=== PATIENT | male | born 1975 | race Caucasian/White ===

== ENCOUNTER 2020-10-31 16:26 | Emergency (ER) | payer SELFPAY ==
[~2020-10-31] VITALS: Ht 185.4 cm; Wt 112.2 kg
[~2020-10-31 16:26] MED LIST: CYCL10TA9 PO; TRAM50TA2 PO
--- NOTE | 2020-10-31 17:09 | ED Lower Extremity ---
General Chief Complaint: Lower Extremity Stated Complaint: RT FOOT INJ Source: patient History of Present Illness Date Seen by Provider: Oct 31, 2020 Time Seen by Provider: 16:29 Initial Comments 45-year-old male presenting with pain to his right foot after cast iron tub fell on his foot. He was helping to move the tub on a ramp when the ramp gave way and collapsed. It caused the cast iron tub to fall onto his right foot. He has pain to top of right foot but has been able to hobble and bear some weight. 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 He denies numbness or tingling. He has no prior injury to his right foot. Onset: just prior to arrival Severity: severe Pain/Injury Location: right foot Method of Injury: direct blow Modifying Factors: Worse With Movement Allergies and Home Medications Allergies Coded Allergies: No Known Drug Allergies (Unverified , 10/21/14) Home Medications Ibuprofen 800 Mg Tablet, 800 MG PO Q8H PRN for PAIN Prescribed by: MICHAEL LIND on 10/31/201726 Tramadol HCl 50 Mg Tablet, 50 MG PO Q4H PRN for PAIN-SEVERE (8-10) Prescribed by: MICHAEL LIND on 10/31/20 1727 Patient Home Medication List Home Medication List Reviewed: Yes Review of Systems Constitutional: No chills, No fever EENTM: no symptoms reported Respiratory: no symptoms reported Cardiovascular: no symptoms reported Gastrointestinal: no symptoms reported Genitourinary: no symptoms reported Musculoskeletal: see HPI Skin: change in color (starting to get bruising to right foot) Psychiatric/Neurological: Anxiety; Denies Numbness, Denies Paresthesia, Denies Tingling, Denies Tremors Past Tzswvlb-Ierzbc-Ssfrcl Hx Patient Social History Tobacco Use?: Yes Tobacco type used: Cigarettes Smoking Status: Current Everyday Smoker Use of E-Cig and/or Vaping dev: No Substance use?: No Alcohol Use?: Yes Alcohol type: Hard Liquor Alcohol Frequency: Daily Pt feels they are or have been: No Seasonal Allergies Seasonal Allergies: No Past Medical History Appendectomy, Gallbladder Reproductive Disorders: No Family Medical History No Pertinent Family Hx Physical Exam Vital Signs Vital Signs - First Documented 10/31/20 16:47 Temp 36.1 Pulse 107 Resp 16 B/P (MAP) 155/104 (121) Pulse Ox 100 O2 Delivery Room Air Capillary Refill : Height, Weight, BMI Height: 6'1" Weight: 225lbs. oz. 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, no motor/sensory deficits, alert, oriented x 3 Skin: warm/dry Progress/Results/Core Measures Results/Orders My Orders Orders - MICHAEL LIND MD Foot 3 View Right (10/31/20 16:40) Ice: Apply To Affected Area (10/31/20 16:40) Elevate Affected Extremity (10/31/20 16:40) Post-Op Shoe (10/31/20 17:21) Vital Signs/I&O 10/31/20 10/31/20 16:47 17:40 Temp 36.1 36.1 Pulse 107 98 Resp 16 16 B/P (MAP) 155/104 (121) 155/97 (121) Pulse Ox 100 100 O2 Delivery Room Air Progress Progress Note #1: Progress Note As patient had taken whiskey before coming to the ED will obtain x-rays to evalu ate for fracture dislocation. Ordered ice and elevation to help with pain Progress Note #2: Progress Note No acute fracture or dislocation seen on x-rays of the right foot. Counseled on follow-up and return precautions. Treat with postop shoe and weightbearing as tolerated. Ice, rest, elevation, NSAIDs and a few pain pills for severe pain. Diagnostic Imaging Diagonstic Imaging: Xray Plain Films/CT/US/NM/MRI: other (foot) Comments NAME: JAYLAN POTTER [facility] REC#: [id number] PT STATUS: REG ER : 1975 PHYSICIAN: MICHAEL LIND MD ADMIT DATE: 10/31/20/ER FS Draft Date of Exam:10/31/20 FOOT 3 VIEW RIGHT INDICATION: Pain in the lateral right foot. TIME OF EXAM: 4:46 p.m. Three views of the right foot were obtained. Metatarsals and phalanges are intact. Midfoot and hindfoot are unremarkable. No fractures are seen. IMPRESSION: No acute bony abnormality is detected. Dictated on workstation # [id number] Dict: 10/31/201704 Trans: 10/31/201707 [facility] [id number] Interpreted by: PERICO SWEENEY MD Electronically signed by: Reviewed: Reviewed by Me Departure Impression Primary Impression: Contusion of right foot, initial encounter Additional Impression: Crushing injury of right foot, initial encounter Disposition: HOME, SELF-CARE Condition: Stable Departure-Patient Inst. Decision time for Depature: 17:25 Referrals: NO,LOCAL PHYSICIAN (PCP) Primary Care Physician [facility] [place] Patient Instructions: Crush Injury (DC), Minor Contusion ED Add. Discharge Instructions: Wear the Post Op Shoe for the next 7 to 10 days to let your foot rest and heal from contusion and crush injury. If not improving within 7 to 10 days then you may need repeat xrays or more advanced imaging with Orthopedics or Primary care to look for hairline stress fracture. Weight bearing as you tolerate it, so you may need a pair of crutches to help you get around. Try to limit use of the right foot for next few days and elevate it above your heart level to help with swelling and pain. Ice 20-30 minutes every few hours as needed for pain and swelling You could call the [facility] clinic at [phone] to get established with a primary care doctor or call [phone] to reach Orthopedics with Dr. Marie and his nurse practitioner Herberth Bhagat. All discharge instructions reviewed with patient and/or family. Voiced understanding. Scripts Ibuprofen (Ibuprofen) 800 Mg Tablet 800 MG PO Q8H PRN for PAIN for 10 Days, #30 TAB 0 Refills Prov: MICHAEL LIND MD 10/31/20 Tramadol HCl (Tramadol HCl) 50 Mg Tablet 50 MG PO Q4H PRN for PAIN-SEVERE (8-10) for 5 Days, #30 TAB 0 Refills Prov: MICHAEL LIND MD 10/31/20 MICHAEL LIND MD Oct 31, 2020 17:08
[2020-10-31] MEDS ORDERED: IBUP-1780 PO (17:27)
[2020-10-31] MEDS ORDERED: TRM50T PO (17:27)
[2020-10-31 17:40] VITALS: BP 155/97
== END 2020-10-31 17:43 | disposition home or self-care (01) ==
LOC: EDUNIT# 16:26 → ER FS 16:28
DX: S90.31XA Contusion of right foot, initial encounter (principal); S97.81XA Crushing injury of right foot, initial encounter; F17.210 Nicotine dependence, cigarettes, uncomplicated; W20.8XXA Other cause of strike by thrown, projected or falling object, initial encounter
CPT/HCPCS: 73630

== ENCOUNTER 2021-12-05 22:48 | Emergency (ER) | payer SELFPAY ==
[~2021-12-05] VITALS: Ht 185 cm; Wt 113.4 kg
[~2021-12-05 22:48] MED LIST changes: +IBUP-1780 PO; +TRM50T PO
[2021-12-05 22:52] VITALS: BP 143/92
[2021-12-05] MEDS ORDERED: LISI20TA26 (22:59)
[2021-12-05] MEDS ORDERED: NAPR-915 (22:59)
--- NOTE | 2021-12-05 23:12 | ED EENT ---
History of Present Illness General Chief Complaint: Facial Problems Stated Complaint: FACIAL PAIN Nursing Triage Note: C/O LEFT SIDED FACIAL PAIN X2 HRS. DENIES INJURY. Source: patient Exam Limitations: no limitations History of Present Illness Date Seen by Provider: Dec 05, 2021 Time Seen by Provider: 23:01 Initial Comments 46-year-old male presents for left-sided facial pain. Symptoms started just a couple hours prior to arrival. He is having similar symptoms in the past but does state that he has a chipped tooth with cavities in the left upper jawline and fears this may be causative. He denies fevers or chills. No difficulty swallowing or trismus. He tried some Tylenol at home without much relief. Allergies and Home Medications Allergies Coded Allergies: No Known Drug Allergies (Unverified , 10/21/14) Patient Home Medication List Home Medication List Reviewed: Yes Lisinopril (Lisinopril) 20 Mg Tablet, (Reported) Entered as Reported by: BRIDGETTE BALDERRAMA on 12/05/212258 Last Action: New Order Naproxen (Naproxen) 500 Mg Tablet, (Reported) Entered as Reported by: BRIDGETTE BALEDRRAMA on 12/05/212258 Last Action: New Order Discontinued Medications Ibuprofen (Ibuprofen) 800 Mg Tablet, 800 MG PO Q8H PRN for PAIN Discontinued Reason: No Longer Taking Prescribed by: MICHAEL LIND on 10/31/201726 Last Action: Discontinued Tramadol HCl (Tramadol HCl) 50 Mg Tablet, 50 MG PO Q4H PRN for PAIN-SEVERE (8- 10) Discontinued Reason: No Longer Taking Prescribed by: MICHAEL LIND on 10/31/201726 Last Action: Discontinued Review of Systems Review of Systems Constitutional: no symptoms reported Eyes: No Symptoms Reported Ears: No Symptoms Reported Nose: no symptoms reported Mouth: other Throat: no symptoms reported Respiratory: no symptoms reported Past Aioshzb-Pbradj-Ugsbeo Hx Patient Social History Tobacco Use?: Yes Substance use?: No Alcohol Use?: No Pt feels they are or have been: No Immunizations Up To Date First/Initial COVID19 Vaccinat: NA Seasonal Allergies Seasonal Allergies: No Past Medical History Surgery/Hospitalization HX: APPY, ULISES, ANXIETY, HTN, CVA Appendectomy, Gallbladder Reproductive Disorders: No Family Medical History No Pertinent Family Hx Physical Exam Vital Signs Vital Signs - First Documented 12/05/21 22:52 Temp 36.9 Pulse 94 Resp 18 B/P (MAP) 143/92 (109) Pulse Ox 99 O2 Delivery Room Air Height, Weight, BMI Height: 6'1" Weight: 225lbs. oz. 102.890928gq; 33.00 BMI Method: General Appearance: WD/WN, no apparent distress Mouth/Throat: normal mouth inspection, pharynx normal, dental tenderness (Ten derness palpation left upper premolar. There is a dental carry in this area. No palpable abscess.), excessive drooling Neck: non-tender, full range of motion, supple, normal inspection Cardiovascular: regular rate, rhythm, no edema, no gallop, no JVD, no murmur Respiratory: chest non-tender, lungs clear, normal breath sounds, no respiratory distress, no accessory muscle use Gastrointestinal: normal bowel sounds, non tender, soft, no organomegaly, no pulsatile mass Skin: normal color, warm/dry Progress/Results/Core Measures Results/Orders My Orders Orders - RAY MILES DO Ketorolac Injection (Toradol Injection) (12/05/21 23:15) Vital Signs/I&O 12/05/21 22:52 Temp 36.9 Pulse 94 Resp 18 B/P (MAP) 143/92 (109) Pulse Ox 99 O2 Delivery Room Air Blood Pressure Mean: 109 Departure Communication (Admissions) Patient is hemodynamically stable. He has clear dental pain on exam. No facial swelling but does have some left upper jaw pain. No trismus. Given antibiotics and discharged with dental follow-up. He is comfortable with your current plan of care questions were sought and answered. Impression Primary Impression: Pain due to dental caries Disposition: 01 HOME, SELF-CARE Condition: Stable Departure-Patient Inst. Referrals: NO,LOCAL PHYSICIAN (PCP) Primary Care Physician [facility] Patient Instructions: Tooth Decay ED Add. Discharge Instructions: Please call to schedule a dental appointment. Use motrin and tylenol as needed for pain. It is ok to use motrin short term for this kind of pain. Take the antibiotics as prescribed until gone. All discharge instructions reviewed with patient and/or family. Voiced understanding. Scripts Penicillin V Potassium (Penicillin V Potassium) 500 Mg Tablet 500 MG PO BID for 7 Days, #14 TAB Prov: RAY MILES DO 12/05/21 RAY MILES DO Dec 05, 2021 23:12
[2021-12-05] MEDS ORDERED: PENI500T PO (23:14)
[2021-12-05] MEDS ORDERED: KETOROLAC 60 MG/2 ML VIAL IM ONE (23:15)
== END 2021-12-05 23:28 | disposition home or self-care (01) ==
LOC: EDUNIT# 22:48 → ER 22:50
DX: K02.9 Dental caries, unspecified (principal); Z72.0 Tobacco use; Z28.310 Unvaccinated for COVID-19
CPT/HCPCS: 99284

== ENCOUNTER → 2021-12-24 | Outpatient (CLI) | payer OTHER ==
[~2021-12-24] MED LIST changes: +LISI20TA26; +NAPR-915; +PENI500T PO
--- NOTE | 2021-12-24 13:39 | Diagnostic Imaging Report ---
PROCEDURE: US carotid duplex, bilateral. INDICATION: 46-year-old male, hypertension, hyperlipidemia, transient ischemic attack, history tobacco use. TECHNIQUE: Multiple real-time grayscale images were obtained over the carotid arteries in various projections bilaterally. Additional spectral analysis and color Doppler and Duplex images were also obtained. FINDINGS: Color images demonstrate mild scattered plaque formation. This is most pronounced at the level of the carotid bifurcations. Right Carotid System: Right Common Carotid Artery: Patent. There is no abnormally elevated velocity to suggest a hemodynamically significant stenosis. Right Internal Carotid Artery: Patent. There is no abnormally elevated velocity to suggest a hemodynamically significant stenosis. Right External Carotid Artery: Patent. Left Carotid System: Left Common Carotid Artery: Patent. There is no abnormally elevated velocity to suggest a hemodynamically significant stenosis. Left Internal Carotid Artery: Patent. There is no abnormally elevated velocity to suggest a hemodynamically significant stenosis. Left External Carotid Artery: Patent. Vertebral arteries: Patent and with antegrade direction of flow. DOPPLER (peak systolic velocity M/S Right Left CCA .88 1.06 ICA Proximal .60 .65 ICA Mid .73 .77 ICA Distal .78 .85 RATIO .88 .80 ECA .84 .92 VERT .38 .40 IMPRESSION: 1. Mild atherosclerotic plaque bilateral carotid arteries. Carotid Doppler imaging demonstrates no findings to suggest a hemodynamically significant stenosis of the internal carotid arteries at this time. Parameters based on the consensus panel Siddiqui-Scale and Doppler ultrasound criteria published January 2003, Radiology, Volume 229. Dictated by: Dictated on workstation # [id number]
== END ==
LOC: CARD 09:30
PROVIDERS: ATTEND Physician Assistant
DX: I65.23 Occlusion and stenosis of bilateral carotid arteries (principal); I10 Essential (primary) hypertension; E78.5 Hyperlipidemia, unspecified; G45.9 Transient cerebral ischemic attack, unspecified; Z72.0 Tobacco use
CPT/HCPCS: 93880; C8929; 93306

== ENCOUNTER → 2022-01-07 | Outpatient (CLI) | payer OTHER ==
[~2022-01-07] MED LIST changes: +CATHETER FLUSH 10 ML SYR IVP PRN
[2022-01-07 09:49] VITALS: BP 124/87
--- NOTE | 2022-01-07 12:22 | Cardiology Stress Test Report ---
Stress Test Report Date of Procedure/Referring: Date of Procedure: Jan 07, 2022 PCP No,Local Physician Admitting Physician Admitting Physician: Attending Physician: Madeline Herrera Baseline Heart Rate: 80 Baseline Blood Pressure: Blood Pressure Systolic: 124 Blood Pressure Diastolic: 87 Vital Signs Date Time Temp Pulse Resp B/P (MAP) Pulse Ox O2 Delivery O2 Flow Rate FiO2 01/07/22 09:49 71 124/87 (99) 98 Room Air Baseline Vital Signs Vital Signs Date Time Temp Pulse Resp B/P (MAP) Pulse Ox O2 Delivery O2 Flow Rate FiO2 01/07/22 09:49 71 124/87 (99) 98 Room Air Baseline EKG: Baseline EKG: NSR Summary: After explaining the procedure and details to the patient, he signed the consent and was brought to the stress nuclear laboratory. Patient exercised on standard Dionisio protocol, EKG, heart rate and blood pressure were monitored continuously, resting and stress doses of radio tracer were injected, imaging was acquired and reviewed in the short axis, horizontal long axis and vertical long axis views Patient was able to exercise for a total of 11 minutes on Dionisio protocol, METs 12.1 Maximum heart rate 157 Maximum blood pressure 179/86 Stress EKG, Minimal nondiagnostic changes Recovery EKG, Return to baseline TID: 0.89 SSS: 4 SDS: 4 EF: 56 Conclusion: 1. Excellent exercise tolerance for 11 minutes on Dionisio protocol, 12.1 METS achieving 89% of maximum expected heart rate 2. Appropriate heart rate and blood pressure response to exercise return to baseline during recovery 3. Nondiagnostic EKG changes with exercise return to baseline during recovery 4. Diaphragmatic attenuation with mild decrease uptake at the inferoapical segment with mild reversibility, most probably secondary to diaphragmatic attenuation 5. Normal left ventricular size, ejection fraction 56% LASHAWN DELGADO MD Jan 07, 2022 12:22
== END ==
LOC: CARD 08:30
PROVIDERS: ATTEND Physician Assistant
DX: G45.9 Transient cerebral ischemic attack, unspecified (principal); E78.5 Hyperlipidemia, unspecified; I10 Essential (primary) hypertension; Z72.0 Tobacco use
CPT/HCPCS: 78452; 93017; A9502

== ENCOUNTER 2022-09-05 09:22 | Observation (INO) | payer OTHER ==
[~2022-09-05] VITALS: Ht 185.5 cm; Wt 119.1 kg
[2022-09-05] VITALS (12 sets, daily range): BP systolic 117–157; BP diastolic 88–117
[~2022-09-05 09:22] MED LIST changes: -CATHETER FLUSH 10 ML SYR IVP PRN
--- NOTE | 2022-09-05 09:35 | ED Chest Pain ---
General Stated Complaint: CHEST PAIN Source: patient Exam Limitations: no limitations History of Present Illness Date Seen by Provider: Sep 05, 2022 Time Seen by Provider: 09:23 Initial Comments 47-year-old male presents to the emergency department today for chest pain. Symptoms started about 15 to 20 minutes prior to arrival. He took nitroglycerin x3 spaced about 5 minutes apart without any relief. He describes his symptoms as a pressure in his left anterior chest wall without radiation. No aggravating or alleviating factors and symptoms came on suddenly. He has associated diaphoresis and some shortness of breath. No recent illnesses to include fevers chills cough abdominal pain or changes in bowel or bladder habits. No recent travel. No unilateral lower extremity pain or swelling or recent surgeries. He about a year ago saw someone and was told he likely had a heart attack in the past. He went to [place] and had "a bunch of tests." This did include a stress test. He does not have any heart stents. All other systems reviewed and negative except documented per HPI. Voice recognition software was used to help create this chart Allergies and Home Medications Allergies Coded Allergies: No Known Drug Allergies (Unverified , 10/21/14) Patient Home Medication List Home Medication List Reviewed: Yes No Active Prescriptions or Reported Meds Review of Systems Review of Systems Constitutional: see HPI Past Xxknbim-Djtvmz-Yuoigx Hx Patient Social History Tobacco Use?: Yes Use of E-Cig and/or Vaping dev: No Substance use?: No Alcohol Use?: No Immunizations Up To Date First/Initial COVID19 Vaccinat: NA Seasonal Allergies Seasonal Allergies: No Past Medical History Surgery/Hospitalization HX: APPY, ULISES, ANXIETY, HTN, CVA Appendectomy, Gallbladder Reproductive Disorders: No Family Medical History No Pertinent Family Hx Physical Exam Vital Signs Vital Signs - First Documented 09/05/22 09/05/22 09:22 11:35 Temp 36.7 Pulse 122 Resp 19 B/P (MAP) 152/101 (118) Pulse Ox 98 O2 Delivery Room Air Capillary Refill : Height, Weight, BMI Height: 6'1" Weight: 225lbs. oz. 102.674114rz; 33.00 BMI Method: General Appearance: No Apparent Distress, WD/WN HEENT: Normal ENT Inspection, Pharynx Normal Neck: Full Range of Motion, Normal Inspection, Non Tender, Supple Respiratory: Chest Non Tender, Lungs Clear, Normal Breath Sounds, No Accessory Muscle Use, No Respiratory Distress Cardiovascular: No Murmur, Normal Peripheral Pulses, Tachycardia Gastrointestinal: Normal Bowel Sounds, No Organomegaly, Non Tender, Soft Extremity: Normal Capillary Refill, Normal Inspection, Non Tender Neurologic/Psychiatric: Alert, Oriented x3, Normal Mood/Affect Skin: Normal Color, Warm/Dry Progress/Results/Core Measures Results/Orders Lab Results Laboratory Tests Test 09/05/22 09:29 Range/Units White Blood Count 12.4 H 4.3-11.0 10^3/uL Red Blood Count 5.19 4.30-5.52 10^6/uL Hemoglobin 16.9 13.3-17.7 g/dL Hematocrit 48 40-54 % Mean Corpuscular Volume 92 80-99 fL Mean Corpuscular Hemoglobin 33 25-34 pg Mean Corpuscular Hemoglobin Concent 35 32-36 g/dL Red Cell Distribution Width 13.2 10.0-14.5 % Platelet Count 358 130-400 10^3/uL Mean Platelet Volume 8.5 L 9.0-12.2 fL Immature Granulocyte % (Auto) 0 % Neutrophils (%) (Auto) 66 42-75 % Lymphocytes (%) (Auto) 24 12-44 % Monocytes (%) (Auto) 10 0-12 % Eosinophils (%) (Auto) 1 0-10 % Basophils (%) (Auto) 1 0-10 % Neutrophils # (Auto) 8.2 H 1.8-7.8 10^3/uL Lymphocytes # (Auto) 2.9 1.0-4.0 10^3/uL Monocytes # (Auto) 1.2 H 0.0-1.0 10^3/uL Eosinophils # (Auto) 0.1 0.0-0.3 10^3/uL Basophils # (Auto) 0.1 0.0-0.1 10^3/uL Immature Granulocyte # (Auto) 0.0 0.0-0.1 10^3/uL Sodium Level 138 135-145 MMOL/L Potassium Level 3.4 L 3.6-5.0 MMOL/L Chloride Level 102 98-107 MMOL/L Carbon Dioxide Level 23 21-32 MMOL/L Anion Gap 13 5-14 MMOL/L Blood Urea Nitrogen 11 7-18 MG/DL Creatinine 1.06 0.60-1.30 MG/DL Estimat Glomerular Filtration Rate 88 BUN/Creatinine Ratio 10 Glucose Level 102 70-105 MG/DL Calcium Level 9.5 8.5-10.1 MG/DL Corrected Calcium 8.5-10.1 MG/DL Total Bilirubin 0.5 0.1-1.0 MG/DL Aspartate Amino Transf (AST/SGOT) 31 5-34 U/L Alanine Aminotransferase (ALT/SGPT) 41 0-55 U/L Alkaline Phosphatase 132 40-136 U/L Troponin I < 0.30 <0.30 NG/ML Total Protein 7.8 6.4-8.2 GM/DL Albumin 4.6 H 3.2-4.5 GM/DL My Orders Orders - RAY MILES DO Cbc With Automated Diff (09/05/22 09:31) Chest 1 View Ap/Pa Only (09/05/22 09:31) Comprehensive Metabolic Panel (09/05/22 09:31) Monitor-Rhythm Ecg Trace Only (09/05/22 09:31) Aspirin Chewable Tablet (Baby Aspirin Ch (09/05/22 09:45) Ed Iv/Invasive Line Start (09/05/22 09:31) Troponin I Fs (09/05/22 09:31) Fentanyl Inj (Sublimaze Injection) (09/05/22 10:15) Ed Admission (Communication) (09/05/22 10:15) Medications Given in ED Vital Signs/I&O 09/05/22 09/05/22 09/05/22 09/05/22 09:22 11:35 12:15 12:20 Temp 36.7 Pulse 122 91 90 Resp 19 18 11 B/P (MAP) 152/101 (118) 141/79 136/105 (115) Pulse Ox 98 98 100 O2 Delivery Room Air Room Air Room Air Room Air Comment Sinus tachycardia with a rate of 115 bpm. Normal intervals. Left axis deviation. No ST or T wave abnormalities. No ectopy. Prominent Q waves in the inferior leads. No STEMI. Departure Communication (Admissions) Patient HEART score is 4 based on age, history and risk factors. Recommend admission for further cardiac testing. Chest x-ray is negative. He has no stigmata of DVT, PE. Pain was still significant. Ordered him some fentanyl which helped some. His tachycardia initially has resolved, I think this was likely related more to nerves than anything else. He is otherwise hemodynamically stable. I spoke with Dr. You at 10:25 AM. She request me consult cardiology. I spoke with Dr. Rendon at 1028. He request aspirin and Lovenox. The patient does not need to be n.p.o. at this time. He is admitted MedSurg observation for further testing. Impression Primary Impression: Chest pain Qualified Codes: R07.9 - Chest pain, unspecified Disposition: 30 STILL A PATIENT Condition: Stable Departure-Patient Inst. Referrals: NO,LOCAL PHYSICIAN (PCP/Family) Primary Care Physician Scripts No Active Prescriptions or Reported Meds RAY MILES DO Sep 05, 2022 09:34
[2022-09-05] MEDS ORDERED: ASPIRIN 81 MG CHEW (CHILDREN'S ASA) PO ONE (09:45)
[2022-09-05 09:47] LABS: BASOPHILS # (AUTO) 0.1 10^3/uL (0.0-0.1); BASOPHILS % (AUTO) 1 % (0-10); EOSINOPHILS # (AUTO) 0.1 10^3/uL (0.0-0.3); EOSINOPHILS % (AUTO) 1 % (0-10); HEMATOCRIT 48 % (40-54); HEMOGLOBIN 16.9 g/dL (13.3-17.7); LYMPHOCYTES # (AUTO) 2.9 10^3/uL (1.0-4.0); LYMPHOCYTES % (AUTO) 24 % (12-44); MEAN CORPUSCULAR HEMOGLOBIN 33 pg (25-34); MEAN CORPUSCULAR HGB CONC 35 g/dL (32-36); MEAN CORPUSCULAR VOLUME 92 fL (80-99); MEAN PLATELET VOLUME 8.5 fL (9.0-12.2); MONOCYTES # (AUTO) 1.2 10^3/uL (0.0-1.0); MONOCYTES % (AUTO) 10 % (0-12); NEUTROPHILS # (AUTO) 8.2 10^3/uL (1.8-7.8); NEUTROPHILS % (AUTO) 66 % (42-75); PLATELET COUNT 358 10^3/uL (130-400); WHITE BLOOD COUNT 12.4 10^3/uL (4.3-11.0)
[2022-09-05 10:01] LABS: CARBON DIOXIDE 23 MMOL/L (21-32); CHLORIDE 102 MMOL/L (98-107); POTASSIUM 3.4 MMOL/L (3.6-5.0); SODIUM 138 MMOL/L (135-145)
[2022-09-05 10:02] LABS: ALANINE AMINOTRANSFERASE 41 U/L (0-55); ALBUMIN 4.6 GM/DL (3.2-4.5); ALKALINE PHOSPHATASE 132 U/L (40-136); BILIRUBIN,TOTAL 0.5 MG/DL (0.1-1.0); BUN/CREATININE RATIO 10; CALCIUM 9.5 MG/DL (8.5-10.1); CREATININE SERUM 1.06 MG/DL (0.60-1.30); GFR ESTIMATED 88; GLUCOSE 102 MG/DL (70-105); TOTAL PROTEIN 7.8 GM/DL (6.4-8.2)
--- NOTE | 2022-09-05 10:04 | Diagnostic Imaging Report ---
EXAMINATION: Chest 1 view HISTORY: Chest pain COMPARISON: 10/21/2014 FINDINGS: Heart size and pulmonary vasculature are normal. The lungs are clear without consolidation, pleural effusion, or pneumothorax. The osseous structures are intact. IMPRESSION: 1. No acute radiographic abnormality in the chest. Dictated by: Dictated on workstation # [id number]
[2022-09-05] MEDS ORDERED: fentaNYL INJ 100 MCG/2 ML AMP IVP ONE (10:15)
[2022-09-05] MEDS ORDERED: PATIENT MAY USE OWN MEDS, ALL PO SCH (12:45)
[2022-09-05] MEDS ORDERED: NITROGLYCERIN 0.4 MG SL TABS BTL 25'S SL PRN (12:45)
[2022-09-05] MEDS ORDERED: polyethylene glycoL POWDER 17 GM (MIRALAX) PACK PO PRN (12:45)
[2022-09-05] MEDS ORDERED: MELATONIN 3 MG TABLET PO PRN (12:45)
[2022-09-05] MEDS ORDERED: diphenhydrAMINE 25 MG TAB (BENADRYL) PO PRN (12:45)
[2022-09-05] MEDS ORDERED: ONDANSETRON 4 MG/2 ML (SDV) Z0FRAN IV PRN (12:45)
[2022-09-05] MEDS ORDERED: BISACODYL 10 MG SUPP (DULCOLAX) PR PRN (12:45)
[2022-09-05] MEDS ORDERED: morphine INJ 4 MG/ML 1 ML (VIAL/SYRINGE) IV PRN (12:45)
[2022-09-05] MEDS ORDERED: ACETAMINOPHEN 325 MG TABLET PO PRN (12:45)
[2022-09-05] MEDS ORDERED: HYDROmorphone 2 MG/ML VIAL (DILAUDID) IV PRN (12:45)
[2022-09-05] MEDS ORDERED: ONDANSETRON 4 MG (ZOFRAN) ORAL DISSOLVE TAB PO PRN (12:45)
[2022-09-05] MEDS ORDERED: diphenhydrAMINE 50 MG/ML INJ (BENADRYL) IVP PRN (12:45)
[2022-09-05] MEDS ORDERED: ANTACID SUSP 30 ML UDC (MYLANTA) PO PRN (12:45)
[2022-09-05] MEDS ORDERED: ENOXAPARIN 100 MG/1 ML (LOVENOX) SYR SC SCH (13:00)
[2022-09-05] MEDS: ENOXAPARIN 120 MG/0.8 ML (LOVENOX) SQ SCH (13:16)
[2022-09-05] MEDS: ALPRAZolam 0.5 MG (XANAX) TAB PO SCH ×3 (15:05→23:00)
--- NOTE | 2022-09-05 16:29 | Consultation-Cardiology ---
HPI-Cardiology Cardiology Consultation Date of Consultation 09/05/22 Date of Admission Time Seen by Provider: 16:26 Indication: Chest pain HPI 47-year-old gentleman with history of hypertension, hyperlipidemia, noncompliant with medication. Reported that he was hospitalized recently with chest pain and he was told that he had a myocardial infarction, did not require stent. Woke up while he was laying down in bed with pain in the left side, tightness, similar to the episode when he had his heart attack in addition had history of stroke, currently laying down comfortably in bed. Home Medications & Allergies Allergies: Coded Allergies: No Known Drug Allergies (Unverified , 10/21/14) Home Medication List Reviewed: Yes ECY-Rclyfn-Gosuld Hx Patient Social History Smoking Status: Current Everyday Smoker Alcohol Use?: Yes Substance type: Amphetamines, Methamphetamine, Hallucinogens, Nicotine, Opiates/Opioids, Marijuana Past Medical History Discussed below Family Medical History Significant Family History: No Pertinent Family Hx Review of Systems-General Review of Systems Constitutional: see HPI Cardiovascular: see HPI, chest pain; No edema, No Hx of Intervention, No palpitations, No syncope, No vascular heart diseas, No other Reviewed Test Results Reviewed Test Results Lab Laboratory Tests Test 09/05/22 09:29 Range/Units White Blood Count 12.4 H 4.3-11.0 10^3/uL Red Blood Count 5.19 4.30-5.52 10^6/uL Hemoglobin 16.9 13.3-17.7 g/dL Hematocrit 48 40-54 % Mean Corpuscular Volume 92 80-99 fL Mean Corpuscular Hemoglobin 33 25-34 pg Mean Corpuscular Hemoglobin Concent 35 32-36 g/dL Red Cell Distribution Width 13.2 10.0-14.5 % Platelet Count 358 130-400 10^3/uL Mean Platelet Volume 8.5 L 9.0-12.2 fL Immature Granulocyte % (Auto) 0 % Neutrophils (%) (Auto) 66 42-75 % Lymphocytes (%) (Auto) 24 12-44 % Monocytes (%) (Auto) 10 0-12 % Eosinophils (%) (Auto) 1 0-10 % Basophils (%) (Auto) 1 0-10 % Neutrophils # (Auto) 8.2 H 1.8-7.8 10^3/uL Lymphocytes # (Auto) 2.9 1.0-4.0 10^3/uL Monocytes # (Auto) 1.2 H 0.0-1.0 10^3/uL Eosinophils # (Auto) 0.1 0.0-0.3 10^3/uL Basophils # (Auto) 0.1 0.0-0.1 10^3/uL Immature Granulocyte # (Auto) 0.0 0.0-0.1 10^3/uL Sodium Level 138 135-145 MMOL/L Potassium Level 3.4 L 3.6-5.0 MMOL/L Chloride Level 102 98-107 MMOL/L Carbon Dioxide Level 23 21-32 MMOL/L Anion Gap 13 5-14 MMOL/L Blood Urea Nitrogen 11 7-18 MG/DL Creatinine 1.06 0.60-1.30 MG/DL Estimat Glomerular Filtration Rate 88 BUN/Creatinine Ratio 10 Glucose Level 102 70-105 MG/DL Calcium Level 9.5 8.5-10.1 MG/DL Corrected Calcium 8.5-10.1 MG/DL Total Bilirubin 0.5 0.1-1.0 MG/DL Aspartate Amino Transf (AST/SGOT) 31 5-34 U/L Alanine Aminotransferase (ALT/SGPT) 41 0-55 U/L Alkaline Phosphatase 132 40-136 U/L Troponin I < 0.30 <0.30 NG/ML Total Protein 7.8 6.4-8.2 GM/DL Albumin 4.6 H 3.2-4.5 GM/DL Physical Exam Physical Exam Vital Signs Vital Signs - First Documented 09/05/22 09/05/22 09:22 11:35 Temp 36.7 Pulse 122 Resp 19 B/P (MAP) 152/101 (118) Pulse Ox 98 O2 Delivery Room Air Capillary Refill : Less Than 3 Seconds Height, Weight, BMI Height: 6'1" Weight: 225lbs. oz. 102.057715dz; 34.93 BMI Method: General Appearance: No Apparent Distress, WD/WN HEENT: Normal ENT Inspection, Pharynx Normal Neck: Full Range of Motion, Normal Inspection, Non Tender, Supple Respiratory: Chest Non Tender, Lungs Clear, Normal Breath Sounds, No Accessory Muscle Use, No Respiratory Distress Cardiovascular: No Murmur, Normal Peripheral Pulses, Tachycardia Gastrointestinal: Normal Bowel Sounds, No Organomegaly, Non Tender, Soft Extremity: Normal Capillary Refill, Normal Inspection, Non Tender Neurologic/Psychiatric: Alert, Oriented x3, Normal Mood/Affect Skin: Normal Color, Warm/Dry A/P-Cardiology Admission Diagnosis Chest pain Coronary artery disease Hyperlipidemia Tobaccoism Assessment/Plan Chest pain nonspecific etiology, resembling angina EKG did not show any acute abnormality Patient reporting history of coronary artery disease did not require stent. Not taking his medication We will monitor cardiac enzymes and planning for exercise stress test in the morning Coronary artery disease, history of myocardial infarction, treated conservatively in the past. Tobaccoism, educated on smoking cessation Questionable history of CVA in the past. 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
[2022-09-05] MEDS: DOCUSATE SODIUM 100 MG (COLACE) CAP PO SCH (21:00)
[2022-09-06] VITALS: BP 127/75
[2022-09-06] MEDS: ENOXAPARIN 120 MG/0.8 ML (LOVENOX) SQ SCH (00:46)
[2022-09-06 04:00] VITALS: BP 132/88
[2022-09-06 04:43] LABS: BASOPHILS # (AUTO) 0.1 10^3/uL (0.0-0.1); BASOPHILS % (AUTO) 1 % (0-10); EOSINOPHILS # (AUTO) 0.3 10^3/uL (0.0-0.3); EOSINOPHILS % (AUTO) 4 % (0-10); HEMATOCRIT 48 % (40-54); HEMOGLOBIN 16.7 g/dL (13.3-17.7); LYMPHOCYTES # (AUTO) 2.9 10^3/uL (1.0-4.0); LYMPHOCYTES % (AUTO) 32 % (12-44); MEAN CORPUSCULAR HEMOGLOBIN 33 pg (25-34); MEAN CORPUSCULAR HGB CONC 35 g/dL (32-36); MEAN CORPUSCULAR VOLUME 95 fL (80-99); MEAN PLATELET VOLUME 8.7 fL (9.0-12.2); MONOCYTES % (AUTO) 11 % (0-12); NEUTROPHILS # (AUTO) 4.9 10^3/uL (1.8-7.8); NEUTROPHILS % (AUTO) 53 % (42-75); PLATELET COUNT 309 10^3/uL (130-400); WHITE BLOOD COUNT 9.2 10^3/uL (4.3-11.0)
[2022-09-06] MEDS: ALPRAZolam 0.5 MG (XANAX) TAB PO SCH ×2 (04:48→09:15)
[2022-09-06 05:07] LABS: ALANINE AMINOTRANSFERASE 36 U/L (0-55); ALBUMIN 3.9 GM/DL (3.2-4.5); ALKALINE PHOSPHATASE 112 U/L (40-136); BILIRUBIN,TOTAL 0.6 MG/DL (0.1-1.0); BUN/CREATININE RATIO 14; CALCIUM 9.1 MG/DL (8.5-10.1); CARBON DIOXIDE 26 MMOL/L (21-32); CHLORIDE 104 MMOL/L (98-107); CHOLESTEROL 187 MG/DL (< 200); CREATININE SERUM 1.08 MG/DL (0.60-1.30); GFR ESTIMATED 86; GLUCOSE 83 MG/DL (70-105); HDL CHOLESTEROL 29 MG/DL (40-60); POTASSIUM 4.5 MMOL/L (3.6-5.0); SODIUM 139 MMOL/L (135-145); TRIGLYCERIDES 239 MG/DL (<150); VLDL CHOLESTEROL 48 MG/DL (5-40)
[2022-09-06] MEDS ORDERED: CATHETER FLUSH 10 ML SYR IVP PRN (06:45)
[2022-09-06 08:12] VITALS: BP 141/95
[2022-09-06] MEDS: DOCUSATE SODIUM 100 MG (COLACE) CAP PO SCH (09:15)
[2022-09-06 09:16] VITALS: BP 157/100
[2022-09-06] MEDS ORDERED: amLODIPine 5 MG (NORVASC) TAB PO NR (10:30)
--- NOTE | 2022-09-06 10:38 | Short Stay Summary-Hospitalist ---
History of Present Illness HPI/Chief Complaint Chief complaint: Atypical chest pain HPI: This is a 47-year-old male who has intellectual delay who presented to the ER with chest pain. Troponin was negative. Stress test has been completed we will await cardiology consultation. Patient wants to go home and smoke. He left AGAINST MEDICAL ADVICE before stress test results. Source: patient Exam Limitations: no limitations Date Seen 09/06/22 Time Seen by a Provider: 11:00 Attending Physician Radha Vega MD PCP Admitting Physician: Shante Lanza DO Attending Physician: Shante Lanza DO Referring Physician Date of Admission Sep 05, 2022 at 12:25 Home Medications & Allergies Home Medications Reviewed patient Home Medication Reconciliation performed by pharmacy medication reconciliations histologic technician and/or nursing. Patients Allergies have been reviewed. Allergies Allergies Coded Allergies No Known Drug Allergies (Unverified10/21/14) Past Oinrshj-Qycqwu-Dewswp Hx Patient Social History Marrital Status: single Employed/Student: unemployed Tobacco Use?: Yes Tobacco type used: Cigars Smoking Status: Current Everyday Smoker Smokeless Tobacco Frequency: Never a User Use of E-Cig and/or Vaping dev: No Use of E-Cig and/or Vaping Samuel: Never a User Substance use?: Yes Substance type: Amphetamines, Methamphetamine, Hallucinogens, Nicotine, Opiates /Opioids, Marijuana Additional substance use comme: HX DRUG USE, CLEAN FOR ABOUT 1 YEAR. STILL DOES THC Alcohol Use?: Yes Alcohol Frequency: Once in a while Pt feels they are or have been: No Immunizations Up To Date First/Initial COVID19 Vaccinat: NA Tetanus Booster (TDap): Unknown Seasonal Allergies Seasonal Allergies: No Current Status Advance Directives: No Communicates: Verbally Primary Language: [place] Preferred Spoken Language: [place] Is interpretation needed?: No Implanted or Applied Medical D: None Past Medical History Surgeries: Appendectomy, Gallbladder Hypertension Family Medical History No Pertinent Family Hx Review of Systems Constitutional: see HPI, malaise, weakness EENTM: no symptoms reported Respiratory: no symptoms reported Cardiovascular: chest pain Gastrointestinal: no symptoms reported Genitourinary: no symptoms reported Musculoskeletal: no symptoms reported Skin: no symptoms reported Psychiatric/Neurological: No Symptoms Reported All Other Systems Reviewed Negative Unless Noted: Yes Physical Exam Physical Exam Vital Signs Vital Signs - First Documented 09/05/22 09/05/22 09/05/2216/23 09:22 11:35 23:00 11:00 Temp 36.7 Pulse 122 Resp 19 B/P (MAP) 152/101 (118) Pulse Ox 98 O2 Delivery Room Air O2 Flow Rate 2.00 FiO2 21 Capillary Refill : Less Than 3 Seconds Height, Weight, BMI Height: 6'1" Weight: 225lbs. oz. 102.607722vs; 34.61 BMI Method: General Appearance: No Apparent Distress, WD/WN, Chronically ill HEENT: Normal ENT Inspection, Pharynx Normal Neck: Full Range of Motion, Normal Inspection, Non Tender, Supple Respiratory: Chest Non Tender, Lungs Clear, Normal Breath Sounds, No Accessory Muscle Use, No Respiratory Distress Cardiovascular: No Murmur, Normal Peripheral Pulses, Tachycardia Gastrointestinal: Normal Bowel Sounds, No Organomegaly, Non Tender, Soft Extremity: Normal Capillary Refill, Normal Inspection, Non Tender Neurologic/Psychiatric: Alert, Oriented x3, Normal Mood/Affect Skin: Normal Color, Warm/Dry Results Results/Procedures Labs Laboratory Tests 09/05/22 09:29 09/06/22 04:31 Patient resulted labs reviewed. Short Stay Diagnosis Discharge Diagnosis-Short Stay Admission Diagnosis Atypical chest pain Hypertension Smoker Final Discharge Diagnosis Atypical chest pain Hypertension Smoker Conclusion Plan Discharge home if okay with cardiology Left AGAINST MEDICAL ADVICE. 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
[2022-09-06 11:00] VITALS: BP 157/100
[2022-09-06] MEDS ORDERED: ATOR20TA49 PO (11:10)
[2022-09-06] MEDS ORDERED: ASPI-1238 PO (11:10)
[2022-09-06] MEDS ORDERED: AMLO-250 PO (11:10)
[2022-09-06 11:27] VITALS: BP 153/87
[2022-09-06] MEDS ORDERED: RT-ALBUTEROL SULF 2.5 MG/3 ML PRE-MIX VIAL INH PRN (14:00)
--- NOTE | 2022-09-06 16:48 | Cardiology Stress Test Report ---
Stress Test Report Type of NM Stress Test: Test Type: NUCLEAR TREADMILL Date of Procedure/Referring: Date of Procedure: Sep 06, 2022 PCP Radha Vega MD Admitting Physician Admitting Physician: Shante Lanza DO Attending Physician: Shante Lanza DO Indications: Chest pain Baseline Heart Rate: 72 Baseline Blood Pressure: Blood Pressure Systolic: 153 Blood Pressure Diastolic: 87 Baseline EKG: Baseline EKG: sinus rhythm with no ST-T wave changes Summary & Conclusion: Summary: The patient was brought to the stress lab after informed consent was taken. Stress test was performed according to the [facility] protocol. Baseline EKG showed sinus rhythm at 72 BPM. Initial blood pressure was 141/95 mmHg. Maximum heart rate was 154 bpm and blood pressure 257/108 mmHg. Patient did not have any chest pain, arrhythmias or ST segment changes during the stress test. Patient achieved 88% of MPHR. Exercised for 11 minutes and 12.1 mets. 10.42 mCi of Myoview were given for rest imaging and 32.1 mCi of Myoview given for stress imaging. Transient ischemic dilatation score 0.87, EF nl percent. Normal wall motion. Normal myocardial perfusion imaging during rest and stress. Conclusion: Exercise stress test was negative for ischemia. Good functional capacity. Hypertensive response to exercise. Normal LV function with no wall motion abnormalities. Normal myocardial perfusion imaging during rest and stress. Elizabeth COHN MD Sep 06, 2022 16:48
[2022-09-07] MEDS ORDERED: amLODIPine 5 MG (NORVASC) TAB PO SCH (09:00)
== END 2022-09-06 14:15 | disposition left against medical advice (07) ==
LOC: EDUNIT# 09:22 → ER FS 09:24 → CSD 12:20 → UNDOADMOB 12:25 → UNDODISOB 09-06 14:15
PROVIDERS: ADMIT Internal Medicine; ATTEND Internal Medicine
DX: R07.89 Other chest pain (principal); I10 Essential (primary) hypertension; I25.10 Atherosclerotic heart disease of native coronary artery without angina pectoris; I25.2 Old myocardial infarction; E78.5 Hyperlipidemia, unspecified; F79 Unspecified intellectual disabilities; F17.210 Nicotine dependence, cigarettes, uncomplicated; Z28.310 Unvaccinated for COVID-19
CPT/HCPCS: 36415; 71045; 78452; 80053 ×2; 80061; 84484 ×2; 85025 ×2; 93005 ×2; 93017; 93041; 96372 ×2; 99284; A9502; C8929; G0378; 93306

== ENCOUNTER 2022-09-06 18:07 | Emergency (ER) | payer OTHER ==
[~2022-09-06] VITALS: Ht 185.5 cm; Wt 119.1 kg
[~2022-09-06 18:07] MED LIST changes: +AMLO-250 PO; +ASPI-1238 PO; +ATOR20TA49 PO
[2022-09-06] MEDS ORDERED: NS IV 1000 ML 1,000 ML IV STA (18:13)
--- NOTE | 2022-09-06 18:20 | ED General ---
General Chief Complaint: Dizziness/Syncope Stated Complaint: CHEST PAIN Source of Information: Patient, EMS, Old Records (Hospitalist notes from Dr. Hsu and Cardiology consult and stress test by Dr. Rendon and Dr. Eason from observation stay in the last 24 hours) History of Present Illness Date Seen by Provider: Sep 06, 2022 Time Seen by Provider: 18:07 Initial Comments 47-year-old male presenting with complaints of chest pain. Patient was brought in by EMS from home. He had left [facility] earlier today and he was doing yard work at home today in the heat. He had sudden sharp central ches t pain and reports it feels similar to the pain he had yesterday. He was given nitroglycerin, 324 mg of aspirin, 75 mcg of fentanyl by EMS. On arrival to the ED he reports his pain is down to a 3 out of 10. He had no acute ST elevation on his electrocardiogram. He was tachycardic with heart rate of 110 bpm on review of the cardiology and hospitalist notes from his admission and testing in the last 24 hours that he had a negative stress test interpreted by Dr. Eason today. Blood work was all negative for acute coronary ischemia. Timing/Duration: 1/2 Hour Severity: Severe Modifying Factors: worse with Movement (activity was making his pain worse this afternoon while he was doing yard work) Associated Systoms: Chest Pain; No Diaphoresis, No Fever/Chills, No Headaches, No Loss of Appetite; Malaise; No Nausea/Vomiting, No Rash, No Seizure; Shortness of Air; No Syncope; Weakness Allergies and Home Medications Allergies Coded Allergies: No Known Drug Allergies (Unverified , 10/21/14) Patient Home Medication List Home Medication List Reviewed: Yes Amlodipine Besylate (Amlodipine Besylate) 5 Mg Tablet, 5 MG PO DAILY Prescribed by: FAZAL HSU on 09/06/22 1110 Aspirin (Aspirin EC) 81 Mg Tablet.dr 81 MG PO DAILY Prescribed by: FAZAL HSU on 09/06/22 111 Atorvastatin Calcium (Lipitor) 20 Mg Tablet, 20 MG PO DAILY Prescribed by: FAZAL HSU on 09/06/22 1110 Discontinued Medications Lisinopril (Lisinopril) 20 Mg Tablet, (Reported) Discontinued Reason: No Longer Taking Entered as Reported by: BRIDGETTE BALDERRAMA on 12/05/212258 Naproxen (Naproxen) 500 Mg Tablet, (Reported) Discontinued Reason: No Longer Taking Entered as Reported by: BRIDGETTE BALDERRAMA on 12/05/212258 Penicillin V Potassium (Penicillin V Potassium) 500 Mg Tablet, 500 MG PO BID Discontinued Reason: No Longer Taking Prescribed by: RAY MILES MD on 12/05/21 2314 Review of Systems Review of Systems Constitutional: No chills, No fever EENTM: no symptoms reported Respiratory: see HPI Cardiovascular: see HPI Gastrointestinal: No nausea, No vomiting Genitourinary: No dysuria Musculoskeletal: no symptoms reported Skin: no symptoms reported Psychiatric/Neurological: No Symptoms Reported Past Eltkouk-Odclxo-Fwimpf Hx Patient Social History Tobacco Use?: Yes Tobacco type used: Cigarettes Alcohol Use?: No Immunizations Up To Date First/Initial COVID19 Vaccinat: NA Seasonal Allergies Seasonal Allergies: No Past Medical History Surgery/Hospitalization HX: APPY, ULISES, ANXIETY, HTN, CVA Appendectomy, Gallbladder Reproductive Disorders: No Family Medical History No Pertinent Family Hx Physical Exam Vital Signs Vital Signs - First Documented 09/06/22 18:07 Temp 36.5 Pulse 100 Resp 21 B/P (MAP) 145/101 (116) Pulse Ox 95 O2 Delivery Room Air Capillary Refill : Height, Weight, BMI Height: 6'1" Weight: 225lbs. oz. 102.374401wa; 34.61 BMI Method: General Appearance: Anxious, Other (disheveled appearance and poor hygiene) HEENT: PERRL/EOMI, Pharynx Normal Neck: Full Range of Motion, Normal Inspection, Non Tender, Supple Respiratory: Chest Non Tender, Lungs Clear, Normal Breath Sounds, No Accessory Muscle Use, No Respiratory Distress Cardiovascular: Regular Rate, Rhythm, Normal Peripheral Pulses, Tachycardia Gastrointestinal: Normal Bowel Sounds, No Pulsatile Mass, Non Tender, Soft Rectal: Deferred Extremity: Normal Capillary Refill, Normal Inspection, No Pedal Edema Neurologic/Psychiatric: Alert, Oriented x3, 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 Norm as Tested Skin: Normal Color, Warm/Dry Progress/Results/Core Measures Suspected Sepsis SIRS Temperature: Pulse: Respiratory Rate: Laboratory Tests 09/06/22 18:16: White Blood Count 9.4 Blood Pressure / Mean: Laboratory Tests 09/06/22 18:16: Creatinine 1.07, INR Comment 0.9, Platelet Count 304, Total Bilirubin 0.4 Results/Orders Lab Results Laboratory Tests Test 09/06/22 18:16 09/06/22 19:07 Range/Units White Blood Count 9.4 4.3-11.0 10^3/uL Red Blood Count 4.75 4.30-5.52 10^6/uL Hemoglobin 15.6 13.3-17.7 g/dL Hematocrit 44 40-54 % Mean Corpuscular Volume 93 80-99 fL Mean Corpuscular Hemoglobin 33 25-34 pg Mean Corpuscular Hemoglobin Concent 35 32-36 g/dL Red Cell Distribution Width 12.9 10.0-14.5 % Platelet Count 304 130-400 10^3/uL Mean Platelet Volume 8.5 L 9.0-12.2 fL Immature Granulocyte % (Auto) 0 % Neutrophils (%) (Auto) 53 42-75 % Lymphocytes (%) (Auto) 34 12-44 % Monocytes (%) (Auto) 10 0-12 % Eosinophils (%) (Auto) 3 0-10 % Basophils (%) (Auto) 1 0-10 % Neutrophils # (Auto) 5.0 1.8-7.8 10^3/uL Lymphocytes # (Auto) 3.2 1.0-4.0 10^3/uL Monocytes # (Auto) 0.9 0.0-1.0 10^3/uL Eosinophils # (Auto) 0.3 0.0-0.3 10^3/uL Basophils # (Auto) 0.1 0.0-0.1 10^3/uL Immature Granulocyte # (Auto) 0.0 0.0-0.1 10^3/uL Prothrombin Time 13.1 12.2-14.7 SEC INR Comment 0.9 0.8-1.4 Activated Partial Thromboplast Time 27 24-35 SEC Sodium Level 141 135-145 MMOL/L Potassium Level 3.7 3.6-5.0 MMOL/L Chloride Level 106 98-107 MMOL/L Carbon Dioxide Level 21 21-32 MMOL/L Anion Gap 14 5-14 MMOL/L Blood Urea Nitrogen 15 7-18 MG/DL Creatinine 1.07 0.60-1.30 MG/DL Estimat Glomerular Filtration Rate 87 BUN/Creatinine Ratio 14 Glucose Level 113 H 70-105 MG/DL Calcium Level 8.9 8.5-10.1 MG/DL Corrected Calcium 8.9 8.5-10.1 MG/DL Magnesium Level 2.0 1.6-2.4 MG/DL Total Bilirubin 0.4 0.1-1.0 MG/DL Aspartate Amino Transf (AST/SGOT) 29 5-34 U/L Alanine Aminotransferase (ALT/SGPT) 34 0-55 U/L Alkaline Phosphatase 121 40-136 U/L Troponin I < 0.30 <0.30 NG/ML Pro-B-Type Natriuretic Peptide 52.8 <125.0 PG/ML Total Protein 6.8 6.4-8.2 GM/DL Albumin 4.0 3.2-4.5 GM/DL Lipase 22 8-78 U/L Urine Color YELLOW Urine Clarity CLEAR Urine pH 6.5 5-9 Urine Specific [place] <=1.005 1.016-1.022 Urine Protein NEGATIVE NEGATIVE Urine Glucose (UA) NEGATIVE NEGATIVE Urine Ketones NEGATIVE NEGATIVE Urine Nitrite NEGATIVE NEGATIVE Urine Bilirubin NEGATIVE NEGATIVE Urine Urobilinogen 0.2 < = 1.0 MG/DL Urine Leukocyte Esterase NEGATIVE NEGATIVE Urine RBC (Auto) TRACE-I H NEGATIVE Urine RBC 5-10 H /HPF Urine WBC NONE /HPF Urine Squamous Epithelial Cells NONE /HPF Urine Crystals NONE /LPF Urine Bacteria TRACE /HPF Urine Casts PRESENT /LPF Urine Hyaline Casts 5-10 H /LPF Urine Mucus LARGE H /LPF Urine Other SPERM PRESENT /HPF Urine Culture Indicated NO Urine Opiates Screen NEGATIVE NEGATIVE Urine Oxycodone Screen NEGATIVE NEGATIVE Urine Methadone Screen NEGATIVE NEGATIVE Urine Propoxyphene Screen NEGATIVE NEGATIVE Urine Barbiturates Screen NEGATIVE NEGATIVE Ur Tricyclic Antidepressants Screen NEGATIVE NEGATIVE Urine Phencyclidine Screen NEGATIVE NEGATIVE Urine Amphetamines Screen POSITIVE H NEGATIVE Urine Methamphetamines Screen POSITIVE H NEGATIVE Urine Benzodiazepines Screen POSITIVE H NEGATIVE Urine Cocaine Screen NEGATIVE NEGATIVE Urine Cannabinoids Screen POSITIVE H NEGATIVE My Orders Orders - MICHAEL LIND MD Cbc With Automated Diff (09/06/22 18:11) Magnesium (09/06/22 18:11) Ekg Tracing (09/06/22 18:11) Comprehensive Metabolic Panel (09/06/22 18:11) Protime With Inr (09/06/22 18:11) Partial Thromboplastin Time (09/06/22 18:11) O2 (09/06/22 18:11) Monitor-Rhythm Ecg Trace Only (09/06/22 18:11) Ed Iv/Invasive Line Start (09/06/22 18:11) Lipase (09/06/22 18:11) Troponin I Fs (09/06/22 18:11) Probnp Fs (09/06/22 18:11) Drug Screen Stat (Urine) (09/06/22 18:11) Ua Culture If Indicated (09/06/22 18:11) Ct Angio Chest W (09/06/22 18:11) Ns Iv 1000 Ml (Sodium Chloride 0.9%) (09/06/22 18:13) Iohexol Injection (Omnipaque 350 Mg/Ml 1 (09/06/22 18:30) Received Contrast (Hold Metformin- Contr (09/06/22 18:30) Ns (Ivpb) (Sodium Chloride 0.9% Ivpb Bag (09/06/22 18:30) Iohexol Injection (Omnipaque 350 Mg/Ml 1 (09/06/22 19:00) Received Contrast (Hold Metformin- Contr (09/06/22 19:00) Ns (Ivpb) (Sodium Chloride 0.9% Ivpb Bag (09/06/22 19:00) Medications Given in ED Current Medications Medications Dose Ordered Sig/Viet Route Start Time Stop Time Status Last Admin Dose Admin Iohexol 100 ml ONCE ONCE IV 09/06/22 19:00 09/06/22 19:11 DC 09/06/22 18:51 100 ML Sodium Chloride 100 ml ONCE ONCE IV 09/06/22 19:00 09/06/22 19:11 DC 09/06/22 18:51 100 ML Vital Signs/I&O 09/06/22 09/06/22 18:07 19:53 Temp 36.5 Pulse 100 89 Resp 21 18 B/P (MAP) 145/101 (116) 161/89 Pulse Ox 95 99 O2 Delivery Room Air Room Air Capillary Refill : Progress Note #1: Progress Note Potential diagnosis of anxiety, pleurisy, myocardial infarction, acute coronary syndrome, hypertension, COPD, substance abuse. With patient having observation admit for the same sort of chest pain and neg ative enzymes as well as a negative stress test it is less likely that this was acute coronary syndrome or myocardial infarction. Repeat electrocardiogram tonight appears similar to tracing from yesterday September 05. There is no acute ischemic changes or ST elevation. He had a nuclear medicine stress test today interpreted by Dr. 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 It was interpreted as no acute ischemic changes or signs of reversible ischemia on the testing. He has 2 peripheral IVs initiated by EMS. We will draw labs to recheck complete blood count, comprehensive metabolic profile, lipase, magnesium, troponin, proBNP. Add on a urinalysis and urine drug screen since the has a history of marijuana and methamphetamine abuse. Since he had a nuclear stress test today as well as a chest x-ray yesterday we will add on a CT angiogram of the chest to look for signs of pulmonary embolism or aortic dissection or infiltrate or effusion or pathology to cause his symptoms. He reports his pain is down to a 3 out of 10 and improving with the medicine and treatment from EMS. Allow IV fluids to infuse for hydration. Progress Note #2: Progress Note I reviewed the radiologist report on the CT angiogram of the chest. They did not appreciate any acute pulmonary embolism or aortic dissection. He had no acute infiltrate. His labs showed a stable white blood cell count at 9.4 and he was not anemic. His creatinine was stable at 1.07. His troponin was less than 0.3. He had no acute significant electrolyte abnormality to account for his symptoms. His heart rate improved with IV fluid hydration. His electrocardiogram appeared similar to yesterday. His urine drug screen did demonstrate amphetamines, methamphetamines, benzodiazepines, marijuana. Patient continues to deny any methamphetamine abuse this may have been something mixed in with his marijuana. Encouraged to not use any more of the marijuana if he has additional at home still. Encouraged to follow-up through the [facility] clinic for additional work-up and testing as needed. ECG Initial ECG Impression Date: Sep 06, 2022 Initial ECG Impression Time: 18:09 Initial ECG Rate: 110 Initial ECG Rhythm: S.Tach Initial ECG Comparisson: Unchanged Comment On my personal interpretation I reviewed the electrocardiogram shows a sinus tachycardia with a heart rate of 110 bpm. ME interval [address] elevation. QT interval 333 ms with a QTc interval 398 ms. Overall appears similar to tracing from September 05, 2022. Diagnostic Imaging Diagonstic Imaging: CT Plain Films/CT/US/NM/MRI: chest Comments [facility] [place], [place] NAME: [facility] REC#: [id number] PT STATUS: REG ER : 1975 PHYSICIAN: MICHAEL LIND MD ADMIT DATE: 09/06/22/ER FS Signed Date of Exam:09/06/22 CT ANGIO CHEST W PROCEDURE: CT angiography of the chest with contrast. TECHNIQUE: Multiple contiguous axial images were obtained through the chest after uneventful bolus administration of intravenous contrast. 3D reconstructed CTA MIP acquisitions were also performed. Auto Exposure Controls were utilized during the CT exam to meet ALARA standards for radiation dose reduction. INDICATION: Chest pain, shortness of air EXAMINATION: CTA of the chest 09/06/2022 FINDINGS: Unfortunately, the timing of the bolus was incorrect and bolus was missed. Repeat attempt was performed with the pulmonary arteries still not well opacified. Examination is essentially nondiagnostic for pulmonary embolus. The thoracic aorta unremarkable other than atherosclerotic disease. There are no pericardial or pleural effusions. There is no adenopathy. No suspicious masses noted within the lungs. No focal consolidations. Minimal biapical emphysematous changes present. Visualized upper abdomen demonstrates evidence of previous cholecystectomy. No acute process appreciated. Osseous structures demonstrate no acute process. IMPRESSION: 1. Nondiagnostic evaluation for the presence of pulmonary emboli due to missed bolus. If there is continued clinical question, short-term follow-up recommended. 2. Mild emphysematous changes in the lungs with no acute abnormality appreciated in the chest. Dictated by: Dictated on workstation # [id number] Dict: 09/06/22 1854 Trans: 09/06/22 1909 [facility] [id number] Interpreted by: AIXA FANG MD Electronically signed by: AIXA FANG MD 09/06/22 1909 Reviewed: Reviewed by Me Departure Impression Primary Impression: Atypical chest pain Additional Impression: Methamphetamine abuse Disposition: 01 HOME, SELF-CARE Condition: Improved Departure-Patient Inst. Decision time for Depature: 19:47 Referrals: SUREKHA VEGA MD (PCP) Primary Care Physician Patient Instructions: Chest Pain, Adult ED, Methamphetamine Add. Discharge Instructions: Your heart tests and the stress test that was done earlier while you were at [facility] in [place] are all negative for heart attack or heart damage. Your test did show methamphetamines in addition to marijuana in your system. You should avoid using substances and drugs as they could trigger your chest pains. Especially the methamphetamines puts extra stress on your heart and could cause you to have pain. Follow-up with Dr. Vega in the [facility] clinic as they may want to do additional testing or try some different medications to help prevent continued pain in the future. All discharge instructions reviewed with patient and/or family. Voiced understanding. MICHAEL LIND MD Sep 06, 2022 18:20
[2022-09-06 18:21] LABS: BASOPHILS # (AUTO) 0.1 10^3/uL (0.0-0.1); BASOPHILS % (AUTO) 1 % (0-10); EOSINOPHILS # (AUTO) 0.3 10^3/uL (0.0-0.3); EOSINOPHILS % (AUTO) 3 % (0-10); HEMATOCRIT 44 % (40-54); HEMOGLOBIN 15.6 g/dL (13.3-17.7); LYMPHOCYTES # (AUTO) 3.2 10^3/uL (1.0-4.0); LYMPHOCYTES % (AUTO) 34 % (12-44); MEAN CORPUSCULAR HEMOGLOBIN 33 pg (25-34); MEAN CORPUSCULAR HGB CONC 35 g/dL (32-36); MEAN CORPUSCULAR VOLUME 93 fL (80-99); MEAN PLATELET VOLUME 8.5 fL (9.0-12.2); MONOCYTES # (AUTO) 0.9 10^3/uL (0.0-1.0); MONOCYTES % (AUTO) 10 % (0-12); NEUTROPHILS % (AUTO) 53 % (42-75); PLATELET COUNT 304 10^3/uL (130-400); WHITE BLOOD COUNT 9.4 10^3/uL (4.3-11.0)
[2022-09-06] MEDS ORDERED: NS 100 ML (IVPB) BAG IV ONE ×2 (18:30→19:00)
[2022-09-06] MEDS ORDERED: IOHEXOL 350 MG/ML 100 ML (OMNIPAQUE 350) VIAL IV ONE ×2 (18:30→19:00)
[2022-09-06] MEDS ORDERED: HOLD METFORMIN - RECEIVED CONTRAST 20 ML VIAL IV SCH ×2 (18:30→19:00)
[2022-09-06 18:41] LABS: ALANINE AMINOTRANSFERASE 34 U/L (0-55); ALKALINE PHOSPHATASE 121 U/L (40-136); BILIRUBIN,TOTAL 0.4 MG/DL (0.1-1.0); BUN/CREATININE RATIO 14; CALCIUM 8.9 MG/DL (8.5-10.1); CARBON DIOXIDE 21 MMOL/L (21-32); CHLORIDE 106 MMOL/L (98-107); CREATININE SERUM 1.07 MG/DL (0.60-1.30); GFR ESTIMATED 87; GLUCOSE 113 MG/DL (70-105); INR 0.9 (0.8-1.4); POTASSIUM 3.7 MMOL/L (3.6-5.0); PROTHROMBIN TIME PATIENT 13.1 SEC (12.2-14.7); SODIUM 141 MMOL/L (135-145); TOTAL PROTEIN 6.8 GM/DL (6.4-8.2)
[2022-09-06 18:42] LABS: LIPASE 22 U/L (8-78)
--- NOTE | 2022-09-06 19:07 | Diagnostic Imaging Report ---
PROCEDURE: CT angiography of the chest with contrast. TECHNIQUE: Multiple contiguous axial images were obtained through the chest after uneventful bolus administration of intravenous contrast. 3D reconstructed CTA MIP acquisitions were also performed. Auto Exposure Controls were utilized during the CT exam to meet ALARA standards for radiation dose reduction. INDICATION: Chest pain, shortness of air EXAMINATION: CTA of the chest 09/06/2022 FINDINGS: Unfortunately, the timing of the bolus was incorrect and bolus was missed. Repeat attempt was performed with the pulmonary arteries still not well opacified. Examination is essentially nondiagnostic for pulmonary embolus. The thoracic aorta unremarkable other than atherosclerotic disease. There are no pericardial or pleural effusions. There is no adenopathy. No suspicious masses noted within the lungs. No focal consolidations. Minimal biapical emphysematous changes present. Visualized upper abdomen demonstrates evidence of previous cholecystectomy. No acute process appreciated. Osseous structures demonstrate no acute process. IMPRESSION: 1. Nondiagnostic evaluation for the presence of pulmonary emboli due to missed bolus. If there is continued clinical question, short-term follow-up recommended. 2. Mild emphysematous changes in the lungs with no acute abnormality appreciated in the chest. Dictated by: Dictated on workstation # [id number]
[2022-09-06 19:09] LABS: BILIRUBIN,URINE NEGATIVE (NEGATIVE); CLARITY,URINE CLEAR; COLOR,URINE YELLOW; GLUCOSE, URINE (UA) NEGATIVE (NEGATIVE); KETONES,URINE NEGATIVE (NEGATIVE); LEUKOCYTE ESTERASE ,URINE NEGATIVE (NEGATIVE); NITRITE,URINE NEGATIVE (NEGATIVE); PH,URINE 6.5 (5-9); PROTEIN,URINE NEGATIVE (NEGATIVE)
[2022-09-06 19:13] LABS: BACTERIA,URINE TRACE /HPF; URINE OTHER SPERM PRESENT /HPF
[2022-09-06 19:21] LABS: AMPHETAMINE SCREEN, URINE POSITIVE (NEGATIVE); BARBITURATE SCREEN URINE NEGATIVE (NEGATIVE); BENZODIAZEPINES SCREEN URINE POSITIVE (NEGATIVE); CANNABINOID SCREEN, URINE POSITIVE (NEGATIVE); COCAINE SCREEN URINE NEGATIVE (NEGATIVE); METHADONE STAT NEGATIVE (NEGATIVE); OPIATE SCREEN URINE NEGATIVE (NEGATIVE); OXYCODONE STAT NEGATIVE (NEGATIVE); PROPOXYPHENE STAT NEGATIVE (NEGATIVE); TRICYCLIC ANTIDEPRESSANTS SCRE NEGATIVE (NEGATIVE)
[2022-09-06 19:53] VITALS: BP 161/89
== END 2022-09-06 19:54 | disposition home or self-care (01) ==
LOC: EDUNIT# 18:07 → ER FS 18:08
DX: R07.89 Other chest pain (principal); F15.10 Other stimulant abuse, uncomplicated; R00.0 Tachycardia, unspecified; F17.210 Nicotine dependence, cigarettes, uncomplicated
CPT/HCPCS: 36415; 71275; 80053; 80306; 81000; 83690; 83735; 83880; 84484; 85025; 85610; 85730; 93041